=== PATIENT | male | born 1995 | race Hispanic/Latino ===

== ENCOUNTER 2017-06-16 16:59 | Emergency (ER) | payer OTHER ==
--- NOTE | 2017-06-16 20:15 | ULT ---
RIGHT LOWER EXTREMITY VENOUS DOPPLER WITH SPECTRAL ANALYSIS AND PERIPHERAL EVALUATION: Date: 06-16-17 History: Right leg pain since Jose. FINDINGS: Grayscale, color flow, doppler evaluation, and spectral analysis of the right lower extremity venous structures is performed with 2D imaging. The right lower extremity common femoral, superficial femora l, popliteal, posterior tibial, most proximal greater saphenous and profunda femoral veins are imaged . There is normal lumen compressibility, flow, and augmentation of the deep venous structures of the ri ght lower extremity. IMPRESSION: No evidence of DVT involving the visualized deep venous structures right lower extremity. POS: [facility]
== END 2017-06-16 18:33 | disposition home or self-care (01) ==
LOC: SCSER 16:59
DX: S76.911A Strain of unspecified muscles, fascia and tendons at thigh level, right thigh, initial encounter (principal); X58.XXXA Exposure to other specified factors, initial encounter